=== PATIENT | male | born 1955 | race Caucasian/White ===

== ENCOUNTER 2018-01-26 06:56 | Day surgery (SDC) | payer OTHER ==
[2018-01-26] MEDS ORDERED: LIDOCAINE 4% SOLUTION 50 ML BTL (08:33)
[2018-01-26] MEDS ORDERED: MIDAZOLAM 1 MG/ML 2 ML INJ ×2 (09:12)
[2018-01-26] MEDS ORDERED: FENTAnyl 50 MCG/ML VIAL (09:12)
== END 2018-01-26 11:30 | disposition home or self-care (01) ==
LOC: GIL 06:56
DX: K92.1 Melena (principal); K29.50 Unspecified chronic gastritis without bleeding; K57.90 Diverticulosis of intestine, part unspecified, without perforation or abscess without bleeding; D12.6 Benign neoplasm of colon, unspecified; K64.4 Residual hemorrhoidal skin tags
CPT/HCPCS: 43239; 88305; 88312

== ENCOUNTER 2018-05-05 12:59 | Emergency (ER) | payer OTHER ==
[2018-05-05] MEDS: ONDANSETRON 4 MG INJ IV (13:37)
[2018-05-05] MEDS: morphine 4 MG/ML VIAL IV (13:37)
[2018-05-05 13:39] LABS: ADD MAN DIFF? NO
[2018-05-05 13:45] LABS: BASOPHILS % 0.6 % (0.0-2.0); EOSINOPHILS % 0.8 % (0.0-7.0); HEMATOCRIT 35.8 % (42.0-52.0); HEMOGLOBIN 12.6 g/dl (14.0-18.0); LYMPHOCYTES # 1.7 10^3/ul (0.8-2.9); MEAN CORPUSCULAR HEMOGLOBIN 31.6 pg (29.0-33.0); MEAN CORPUSCULAR HGB CONC 35.2 g/dl (32.0-37.0); MEAN CORPUSCULAR VOLUME 89.7 fl (82.0-101.0); MEAN PLATELET VOLUME 11.1 fl (7.4-10.4); MONOCYTE # 0.3 10^3/ul (0.3-0.9); MONOCYTES % 6.4 % (0.0-11.0); NEUTROPHIL # 2.7 10^3/ul (1.6-7.5); PLATELET COUNT 186 10^3/UL (140-415); RED BLOOD COUNT 3.99 10^6/ul (4.70-6.10); RED CELL DISTRIBUTION WIDTH 12.5 % (11.5-14.5)
[2018-05-05 13:45] LABS: WHITE BLOOD COUNT 4.7 10^3/ul (4.8-10.8)
[2018-05-05 13:56] LABS: ADD UMIC YES; UR AMORPHOUS CRYSTAL FEW /HPF (NONE SEEN); UR ASCORBIC ACID NEGATIVE (NEGATIVE); UR BILIRUBIN (Dip) NEGATIVE (NEGATIVE); UR BLOOD (Dip) NEGATIVE (NEGATIVE); UR CLARITY CLOUDY (CLEAR); UR COLOR AMBER (YELLOW); UR GLUCOSE (Dip) NEGATIVE (NEGATIVE); UR KETONES (Dip) NEGATIVE (NEGATIVE); UR LEUKOCYTE ESTERASE (Dip) NEGATIVE Leu/ul (NEGATIVE); UR MUCUS MODERATE /HPF (NONE SEEN); UR NITRITE (Dip) NEGATIVE (NEGATIVE); UR RBC 2 /HPF (0-5); UR SPECIFIC GRAVITY (Dip) 1.029 (1.003-1.030); UR TOTAL PROTEIN (Dip) 1+ mg/dl (NEGATIVE); UR UROBILINOGEN (Dip) 1+ mg/dL (NEGATIVE); UR WBC 10 /HPF (0-5)
[2018-05-05 14:04] LABS: ALANINE AMINOTRANSFERASE 29 IU/L (13-69); ALBUMIN 3.7 g/dl (3.3-4.9); ALBUMIN/GLOBULIN RATIO 1.15; ALKALINE PHOSPHATASE 72 IU/L (42-121); ANION GAP 10 (8-16); ASPARTATE AMINO TRANSFERASE 29 IU/L (15-46); BILIRUBIN,INDIRECT 0.4 mg/dl (0-1.1); BILIRUBIN,TOTAL 0.4 mg/dl (0.2-1.3); BLOOD UREA NITROGEN 13 mg/dl (7-20); CALCIUM 8.6 mg/dl (8.4-10.2); CARBON DIOXIDE 29 mmol/L (21-31); CHLORIDE 105 mmol/L (97-110); CREATININE 0.54 mg/dl (0.61-1.24); GLUCOSE 102 mg/dl (70-220); LIPASE 84 U/L (23-300); POTASSIUM 3.5 mmol/L (3.5-5.1); SODIUM 140 mmol/L (135-144); TOTAL PROTEIN 6.9 g/dl (6.1-8.1)
== END 2018-05-05 16:30 | disposition home or self-care (01) ==
LOC: E/R 12:59
DX: K80.20 Calculus of gallbladder without cholecystitis without obstruction (principal); Z87.891 Personal history of nicotine dependence
CPT/HCPCS: 36415; 74176; 76705; 80053; 81001; 83690; 85025; 96374; 96375; 99285-25

== ENCOUNTER 2018-07-09 08:10 | Day surgery (SDC) | payer OTHER ==
[~2018-07-09 08:10] MED LIST: CEFAZOLIN 1 GM INJ; DEXAMETHASONE 4 MG/ML 1 ML INJ; EPINEPHrine 1 MG INJ; METOCLOPRAMIDE 10 MG INJ
[2018-07-09] MEDS ORDERED: SOD CHLORIDE 0.9% 1,000 ML IV (10:00)
[2018-07-09] MEDS ORDERED: CEFAZOLIN 2 GM/50 ML (PMX) 50 ML IVPB (10:00)
[2018-07-09] MEDS ORDERED: MIDAZOLAM 1 MG/ML 2 ML INJ (10:24)
[2018-07-09] MEDS ORDERED: FENTAnyl 50 MCG/ML VIAL (10:24)
[2018-07-09] MEDS ORDERED: SUGAMMADEX SODIUM 200 MG/2 ML VIAL IV (10:25)
[2018-07-09] MEDS ORDERED: SUCCINYLCHOLINE CHLORIDE 100 MG/5 ML SYG IV (10:25)
[2018-07-09] MEDS ORDERED: PROPOFOL 20 ML (10:25)
[2018-07-09] MEDS ORDERED: ROCURONIUM 50 MG INJ (10:25)
[2018-07-09] MEDS ORDERED: LIDOCAINE 2% (SDV) 5 ML INJ (10:25)
[2018-07-09] MEDS ORDERED: ONDANSETRON 4 MG INJ (10:28)
[2018-07-09] MEDS ORDERED: FENTAnyl 50 MCG/ML VIAL IV ×2 (11:00)
[2018-07-09] MEDS ORDERED: KETOROLAC 30 MG INJ IV (11:00)
[2018-07-09] MEDS ORDERED: ONDANSETRON 4 MG INJ IV (11:00)
[2018-07-09] MEDS ORDERED: DIPHENHYDRAMINE 50 MG INJ IV (11:00)
[2018-07-09] MEDS ORDERED: MEPERIDINE 25 MG INJ IV (11:00)
[2018-07-09] MEDS ORDERED: ROPIVACAINE 0.5 % 30 ML VIAL (11:55)
[2018-07-09] MEDS: BUPIVACAINE 0.25% (MPF) 30 ML INJ (12:08)
[2018-07-09] MEDS: HYDROmorphONE 1 MG/5 ML IV SYRINGE IV ×3 (13:29→13:30)
[2018-07-09] MEDS: HYDROCODONE/APAP (5/325) TAB PO (14:30)
== END 2018-07-09 15:12 | disposition home or self-care (01) ==
LOC: SDS 08:10
DX: K80.10 Calculus of gallbladder with chronic cholecystitis without obstruction (principal); G40.909 Epilepsy, unspecified, not intractable, without status epilepticus; E78.00 Pure hypercholesterolemia, unspecified
CPT/HCPCS: 47562; 88304

== ENCOUNTER 2019-02-22 09:45 | Day surgery (SDC) | payer OTHER ==
[2019-02-22] MEDS ORDERED: PROPOFOL 20 ML ×2 (11:01→11:30)
== END 2019-02-22 13:43 | disposition home or self-care (01) ==
LOC: GIL 09:45
DX: R19.5 Other fecal abnormalities (principal); K64.8 Other hemorrhoids; Z87.891 Personal history of nicotine dependence
CPT/HCPCS: 45378; 88305